=== PATIENT | male | born 1995 | race Caucasian/White ===

== ENCOUNTER → 2017-10-02 | Outpatient (CLI) | payer BC ==
[2016-12-11 17:38] VITALS: BP 156/69
--- NOTE | 2017-10-02 15:42 | CT ---
HISTORY: Headaches. Study: CT brain without contrast. Comparison: None. Technique: Multiple axial images of the brain were obtained from the skull base to the vertex without administra tion of IV contrast. Findings: No acute intraparenchymal hemorrhage or mass can be identified. 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 No extra-axial fluid collections are seen. No alteration in the attenuation of the brain pa renchyma can be identified to suggest acute or subacute ischemic change. The ventricular system is s ymmetric and nondilated. The extracranial structures are grossly unremarkable. IMPRESSION: No acute intracranial process can be identified. 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 Reported By:
== END ==
LOC: RAD 14:07
PROVIDERS: ATTEND Nurse Practitioner Family
DX: R51 Headache (principal); Q04.8 Other specified congenital malformations of brain
CPT/HCPCS: 70450